=== PATIENT | female | born 1955 | race Caucasian/White ===

== ENCOUNTER → 2022-01-25 | Day surgery (SDC) | payer BC, MEDICARE ==
[~2022-01-25] MED LIST: Ketamine 200 MG/20 ML MDV ONE; Metoclopramide 10 MG/2 ML SDV ONE; Naloxone 2 MG/2 ML Syringe ONE; Propofol 200 MG/20 ML SDV ONE; fentaNYL 100 MCG/2 ML SDV ONE
[2022-01-25] MEDS: Lactated Ringers 1,000 ML IV SCH (10:32)
== END ==
LOC: CC.SDS 09:15
PROVIDERS: ATTEND Family Medicine
DX: D12.5 Benign neoplasm of sigmoid colon (principal); D12.8 Benign neoplasm of rectum; K52.9 Noninfective gastroenteritis and colitis, unspecified; K57.30 Diverticulosis of large intestine without perforation or abscess without bleeding; Z79.899 Other long term (current) drug therapy; Z98.890 Other specified postprocedural states
CPT/HCPCS: 45380; 45385; J2310; J2704; J2765; J3010; J7120; 88305